=== PATIENT | male | born 1965 | race Caucasian/White ===

== ENCOUNTER 2016-11-14 16:51 | Emergency (ER) | payer SELFPAY ==
--- NOTE | 2016-11-14 19:59 | RAD ---
RIGHT RIBS WITH PA CHEST 11/14/16 There appear to be fractures near the distal ends of the right 7th and 8th ribs with minimal displac ement. The other ribs appear intact. There is no sign of pneumothorax or significant pleural effusio n. The heart is normal in size. There are no major pulmonary infiltrates. An incidental findings, a very large amount of fecal material in the right flank presumably in the right colon. IMPRESSION: Findings suggestive of fractures of the right 7th and 8th ribs near their distal ends. Code T POS: HOME
== END 2016-11-14 17:22 | disposition home or self-care (01) ==
LOC: BURERS 16:51
DX: S20.219A Contusion of unspecified front wall of thorax, initial encounter (principal); J45.909 Unspecified asthma, uncomplicated; F17.210 Nicotine dependence, cigarettes, uncomplicated; W11.XXXA Fall on and from ladder, initial encounter